=== PATIENT | female | born 1980 | race Caucasian/White ===

== ENCOUNTER 2016-09-05 16:46 | Emergency (ER) | payer SELFPAY ==
[~2016-09-05] VITALS: Ht 165.1 cm; Wt 54.4 kg
[~2016-09-05 16:46] MED LIST: ALPR1TAB7 PO; AMOX500C2 PO; CYCL10TA9 PO; MUPI1OIN6 TP; SULF1TAB35 PO; TRAM-42 PO; TRAM50TA2 PO; TRAZ100T92 PO
[2016-09-05] MEDS ORDERED: KETOROLAC 60 MG/2 ML VIAL IM ONE ×2 (16:47→17:00)
[2016-09-05] MEDS ORDERED: morphine INJ 10 MG/ML 1ML (SYR OR VIAL) ONE (16:47)
[2016-09-05] MEDS ORDERED: morphine INJ 10 MG/ML 1ML (SYR OR VIAL) IM ONE (17:00)
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
[2016-09-05] MEDS ORDERED: HYDR-757 PO (17:16)
[2016-09-05 17:38] VITALS: BP 109/72
[2016-09-05] MEDS ORDERED: BACITRACIN OINTMENT 28 GM TUBE TOP SCH (21:00)
== END 2016-09-05 17:40 | disposition home or self-care (01) ==
LOC: EDUNIT# 16:46 → ER 16:48
DX: T24.112A Burn of first degree of left thigh, initial encounter (principal); T22.112A Burn of first degree of left forearm, initial encounter; T23.111A Burn of first degree of right thumb (nail), initial encounter; T28.2XXA Burn of other parts of alimentary tract, initial encounter; T24.111A Burn of first degree of right thigh, initial encounter; T31.0 Burns involving less than 10% of body surface; W39.XXXA Discharge of firework, initial encounter
CPT/HCPCS: 96372; 99284

== ENCOUNTER 2017-10-05 06:39 | Emergency (ER) | payer SELFPAY ==
[~2017-10-05] VITALS: Ht 167.6 cm; Wt 52.2 kg
[~2017-10-05 06:39] MED LIST changes: +HYDR-757 PO; +TRAZ-190 PO; -TRAZ100T92 PO
[2017-10-05] MEDS ORDERED: ACETAMINOPHEN 500 MG TAB (TYLENOL) PO ONE (07:00)
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
--- NOTE | 2017-10-05 07:58 | Diagnostic Imaging Report ---
PROCEDURE: CT head and neck without contrast. TECHNIQUE: Contiguous axial images were obtained from the skull base through the vertex. Noncontrast axial images were then obtained of the soft tissue of the neck. INDICATION: Head injury. Visual disturbances. COMPARISON: CT head and neck without contrast 08/09/2015. FINDINGS: CT head: No intracranial hemorrhage, mass effect, hydrocephalus or extra-axial fluid collections. No CT evidence of territorial infarction. No fractures. The visualized paranasal sinuses and mastoids are clear. CT cervical spine: Normal alignment. Vertebral body heights are preserved. No fractures. No evidence of high-grade spinal canal or neural foraminal narrowing. The visualized paravertebral soft tissues are unremarkable. IMPRESSION: No acute intracranial or cervical spine CT findings. Dictated by: Dictated on workstation # [id number]
[2017-10-05 08:25] VITALS: BP 94/54
== END 2017-10-05 08:26 | disposition home or self-care (01) ==
LOC: EDUNIT# 06:39 → ER 06:42
DX: S09.90XA Unspecified injury of head, initial encounter (principal); M32.9 Systemic lupus erythematosus, unspecified; R40.2142 Coma scale, eyes open, spontaneous, at arrival to emergency department; R40.2252 Coma scale, best verbal response, oriented, at arrival to emergency department; R40.2362 Coma scale, best motor response, obeys commands, at arrival to emergency department; Z91.040 Latex allergy status; Z88.6 Allergy status to analgesic agent; Z77.22 Contact with and (suspected) exposure to environmental tobacco smoke (acute) (chronic); Z98.51 Tubal ligation status; Z87.59 Personal history of other complications of pregnancy, childbirth and the puerperium; V48.5XXA Car driver injured in noncollision transport accident in traffic accident, initial encounter
CPT/HCPCS: 70450; 70490

== ENCOUNTER 2018-08-26 06:11 | Emergency (ER) | payer SELFPAY ==
[~2018-08-26] VITALS: Ht 170.2 cm; Wt 63.5 kg
[~2018-08-26 06:11] MED LIST changes: +HYDR-4226 PO; -HYDR-757 PO
[2018-08-26] MEDS ORDERED: KETOROLAC 60 MG/2 ML VIAL IM STA (06:37)
[2018-08-26] MEDS ORDERED: METH4TAB PO ×2 (06:42→06:43)
[2018-08-26] MEDS ORDERED: LORA1TAB59 PO ×2 (06:42→06:43)
[2018-08-26] MEDS ORDERED: NF-CIPDEC OT ×2 (06:42→06:43)
[2018-08-26] MEDS ORDERED: AMOX-358 PO ×2 (06:42→06:43)
[2018-08-26] MEDS ORDERED: FLUT9.9S NS ×2 (06:42→06:43)
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
[2018-08-26] MEDS ORDERED: cefTRIAXone 1,000 MG/2.86 ml vial (IM ONLY) IM ONE (06:45)
[2018-08-26] MEDS ORDERED: LIDOCAINE 1% INJ 20 ML 20 ML VIAL INJ ONE (06:45)
--- NOTE | 2018-08-26 06:48 | NUR ---
Report given to Marisabel MERCADO
[2018-08-26 07:31] VITALS: BP 102/62
== END 2018-08-26 07:31 | disposition home or self-care (01) ==
LOC: EDUNIT# 06:11 → ER 06:14
DX: H60.93 Unspecified otitis externa, bilateral (principal); H65.93 Unspecified nonsuppurative otitis media, bilateral; J32.9 Chronic sinusitis, unspecified; Z91.040 Latex allergy status; Z88.0 Allergy status to penicillin; Z88.6 Allergy status to analgesic agent; Z98.51 Tubal ligation status
CPT/HCPCS: 96372; 99284

== ENCOUNTER 2019-04-18 12:43 | Emergency (ER) | payer SELFPAY ==
[~2019-04-18] VITALS: Ht 164 cm; Wt 63.0 kg
[~2019-04-18 12:43] MED LIST changes: +AMOX-358 PO; +FLUT9.9S NS; +LORA1TAB59 PO; +METH4TAB PO; +NF-CIPDEC OT; -TRAM50TA2 PO; -TRAZ-190 PO; +TRAZ-227 PO; +TRM50T PO
--- NOTE | 2019-04-18 12:59 | ED Cough/URI ---
General Chief Complaint: Respiratory Problems Stated Complaint: SOA Source: patient Exam Limitations: no limitations History of Present Illness Date Seen by Provider: Apr 18, 2019 Time Seen by Provider: 12:56 Initial Comments 38-year-old female presents with cough and burning of her lungs. Patient reports that she "accidentally inhaled lemon sanitation truck cleaner" for about 3 hours this morning. That there is some lemon sanitation truck cleaner spray in her house and she was not aware of it. Patient does smoke and has a history of COPD or reactive airway disease and uses an inhaler. She reports that it didn't help this morning when she tried it. Patient also states she felt a little nauseated patient and has some chills. Patient will does not have any chest pain, diaphoresis or other systemic complaints Allergies and Home Medications Allergies Coded Allergies: latex (Verified Allergy, Unknown, 08/26/18) Uncoded Allergies: ASA (Allergy, Unknown, 07/28/15) PCN (Allergy, Unknown, 08/26/18) Home Medications Alprazolam 1 Mg Tablet, 1 TAB PO TID, (Reported) Amoxicillin/Potassium Clav 1 Each Tablet, 1 EACH PO BID Prescribed by: VICK BARBER on 08/26/18642 Ciprofloxacin HCl/Dexameth 7.5 Ml Soln, 5 DROPS OT BID Prescribed by: VICK BARBER on 08/26/18642 Cyclobenzaprine HCl 10 Mg Tablet, 10 MG PO Q8H Prescribed by: VICK BARBER on 08/10/1553 Fluticasone Propionate 9.9 Ml [place].susp, 2 SPRAYS NS BID Prescribed by: VICK BARBER on 08/26/18642 Hydrocodone/Acetaminophen 1 Each Tablet, 1 EACH PO Q4H PRN for PAIN-MODERATE TO SEVERE Prescribed by: LOLY PEREZ on 09/05/16 1716 Loratadine/Pseudoephedrine 1 Each Tab.er.12h, 1 EACH PO BID Prescribed by: VICK BARBER on 08/26/18642 Methylprednisolone 4 Mg Tab.ds.pk, 4 MG PO UD Prescribed by: VICK BARBER on 08/26/18642 Mupirocin 1 Gm Oin.pf.eileen, 1 GM TP BID Prescribed by: VICK BARBER on 08/10/1553 Sulfamethoxazole/Trimethoprim 1 Each Tablet, 1 EACH PO BID Prescribed by: VICK BARBER on 08/10/1553 Tramadol HCl 50 Mg Tablet, 50 MG PO Q4H Prescribed by: VICK BARBER on 08/10/1553 Patient Home Medication List Home Medication List Reviewed: Yes Review of Systems Review of Systems Constitutional: chills, fever Respiratory: see HPI, cough Cardiovascular: No chest pain, No palpitations Gastrointestinal: No abdominal pain, No diarrhea, No nausea Genitourinary: no symptoms reported Musculoskeletal: no symptoms reported Skin: no symptoms reported Past Tbugbnu-Tggbqe-Xzohld Hx Past Med/Social Hx: Reviewed Nursing Past Med/Soc Hx Patient Social History 2nd Hand Smoke Exposure: Yes Recent Hopitalizations: No Immunizations Up To Date Tetanus Booster (TDap): Unknown Seasonal Allergies Seasonal Allergies: No Past Medical History Surgeries: Yes Section, Tubal Ligation Respiratory: No Cardiac: No Neurological: No Reproductive Disorders: No 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 oz. 63.767126hy; BMI Method:Estimated General Appearance: WD/WN, no apparent distress HEENT: PERRL/EOMI, normal ENT inspection Neck: supple Respiratory: chest non-tender, lungs clear Cardiovascular: normal peripheral pulses, regular rate, rhythm Gastrointestinal: non tender, soft Extremities: normal range of motion, non-tender Neurologic/Psychiatric: alert, normal mood/affect, oriented x 3 Skin: normal color, warm/dry Progress/Results/Core Measures Suspected Sepsis SIRS Temperature: Pulse: Respiratory Rate: Blood Pressure / Mean: Results/Orders Micro Results Microbiology 04/18/19 Influenza Types A,B Antigen (BERYL) - Final, Complete My Orders Orders - BRIANA MEJIA DO Influenza A And B Antigens (04/18/19 12:54) Chest Pa/Lat (2 View) (04/18/19 12:54) Albuterol/Ipra Inhalation Soln (Duoneb I (04/18/19 13:00) Svn Small Volume Nebulizer (04/18/19 12:54) Medications Given in ED Current Medications Medications Dose Ordered Sig/Alberto Route Start Time Stop Time Status Last Admin Dose Admin Albuterol/ Ipratropium 3 ml ONCE ONCE INH 04/18/19 13:00 04/18/19 13:01 DC 04/18/19 13:28 3 ML Vital Signs/I&O 04/18/19 12:50 Temp 37.0 Pulse 105 Resp 20 B/P (MAP) 114/70 (85) Pulse Ox 98 O2 Delivery Room Air Capillary Refill : Progress Note : Time: 13:44 Progress Note Patient with no acute findings on physical exam x-ray lab. Discussed with her that she likely has a mild pneumonitis from her the inhalation. This showed he has some underlying reactive airway disease needing an albuterol inhaler and continues to smoke. Discussed with her the need to quit smoking. That she likely will have better over the course of time. Diagnostic Imaging Diagonstic Imaging: Xray Plain Films/CT/US/NM/MRI: chest Comments NAME: CHARITO PIERRE [facility] REC#: [id number] PT STATUS: REG ER : 1980 PHYSICIAN: BRIANA MEJIA DO ADMIT DATE: 04/18/19/ER Draft Date of Exam:04/18/19 CHEST PA/LAT (2 VIEW) INDICATION: Shortness of breath. COMPARISON: 08/09/2015 TECHNIQUE: Two radiographs of the chest dated 04/18/2019. FINDINGS: The cardiac silhouette is within normal limits in size. No significant pulmonary vascular congestion. The lungs are clear of focal pulmonary opacity. No pleural effusion. No pneumothorax. Surgical clips are present in the right upper quadrant of the abdomen. No acute osseous abnormality. IMPRESSION: No acute cardiopulmonary abnormality. Departure Impression Primary Impression: Pneumonitis due to fumes and vapors Disposition: HOME, SELF-CARE Condition: Stable Departure-Patient Inst. Referrals: [facility] (PCP/Family) Primary Care Physician Patient Instructions: Pneumonitis (DC) Add. Discharge Instructions: Emergency department focuses on treating and ruling out life-threatening diseases. Whenever possible, a diagnosis is given. However, most patients are given an impression based on their history, physical exam, and workup during your brief time in the ER. Information about probable diagnosis and other educational material has been provided. Please take the time to read and understand this information. It is very important that you follow up with a physician as discussed during the visit today. Failure to adhere to your follow-up instructions may lead to severe disability, injury, or so please make sure to keep your appointments or obtain one as requested. Please keep in mind the emergency department is not designed to your primary care or "family doctor" and nonurgent issues are best evaluated by an outpatient physician All discharge instructions reviewed with patient and/or family. Voiced understanding. BRIANA MEJIA DO Apr 18, 2019 12:59
[2019-04-18] MEDS ORDERED: RT-ALBUTEROL/IPRATROPIUM 3 ML (DUONEB) VIAL INH ONE (13:00)
--- NOTE | 2019-04-18 13:28 | Diagnostic Imaging Report ---
INDICATION: Shortness of breath. COMPARISON: 08/09/2015 TECHNIQUE: Two radiographs of the chest dated 04/18/2019. FINDINGS: The cardiac silhouette is within normal limits in size. No significant pulmonary vascular congestion. The lungs are clear of focal pulmonary opacity. No pleural effusion. No pneumothorax. Surgical clips are present in the right upper quadrant of the abdomen. No acute osseous abnormality. IMPRESSION: No acute cardiopulmonary abnormality. Dictated by: Dictated on workstation # [id number]
[2019-04-18 13:50] VITALS: BP 114/70
== END 2019-04-18 13:50 | disposition home or self-care (01) ==
LOC: EDUNIT# 12:43 → ER 12:44
DX: J68.0 Bronchitis and pneumonitis due to chemicals, gases, fumes and vapors (principal); J44.9 Chronic obstructive pulmonary disease, unspecified; Z91.040 Latex allergy status; Z88.6 Allergy status to analgesic agent; Z88.0 Allergy status to penicillin; Z79.51 Long term (current) use of inhaled steroids; Z77.22 Contact with and (suspected) exposure to environmental tobacco smoke (acute) (chronic)
CPT/HCPCS: 71046; 87804

== ENCOUNTER 2019-08-20 15:04 | Emergency (ER) | payer SELFPAY ==
[~2019-08-20] VITALS: Ht 160 cm; Wt 59.0 kg
--- NOTE | 2019-08-20 15:37 | ED EENT ---
History of Present Illness General Chief Complaint: Ear Problems Stated Complaint: BILAT EAR PAIN Source: patient Exam Limitations: no limitations History of Present Illness Date Seen by Provider: Aug 20, 2019 Time Seen by Provider: 15:36 Initial Comments 39-year-old female presents with bilateral ear pain. She reports that started after swimming. Feels like her equilibrium is off. She does have some pain that goes little bit down and her neck. She denies any nausea or vomiting. She denies any fevers chills, she does not have any ear drainage. Allergies and Home Medications Allergies Coded Allergies: latex (Verified Allergy, Unknown, 08/26/18) Uncoded Allergies: ASA (Allergy, Unknown, 07/28/15) PCN (Allergy, Unknown, 08/26/18) Home Medications Alprazolam 1 Mg Tablet, 1 TAB PO TID, (Reported) Amoxicillin/Potassium Clav 1 Each Tablet, 1 EACH PO BID Prescribed by: VICK BARBER on 08/26/18642 Ciprofloxacin HCl/Dexameth 7.5 Ml Soln, 5 DROPS OT BID Prescribed by: VICK BARBER on 08/26/18642 Cyclobenzaprine HCl 10 Mg Tablet, 10 MG PO Q8H Prescribed by: VICK BARBER on 08/10/1553 Fluticasone Propionate 9.9 Ml [place].susp, 2 SPRAYS NS BID Prescribed by: VICK BARBER on 08/26/18642 Hydrocodone/Acetaminophen 1 Each Tablet, 1 EACH PO Q4H PRN for PAIN-MODERATE TO SEVERE Prescribed by: LOLY PEREZ on 09/05/16 171 Loratadine/Pseudoephedrine 1 Each Tab.er.12h, 1 EACH PO BID Prescribed by: VICK BARBER on 08/26/18642 Methylprednisolone 4 Mg Tab.ds.pk, 4 MG PO UD Prescribed by: VICK BARBER on 08/26/18642 Mupirocin 1 Gm Oin.pf.eileen, 1 GM TP BID Prescribed by: VICK BARBER on 08/10/1553 Polymyxin B Sulf/Trimethoprim 10 Ml Drops, 10 ML OP/OT 5XD Prescribed by: BRIANA MEJIA on 08/20/19 1547 Sulfamethoxazole/Trimethoprim 1 Each Tablet, 1 EACH PO BID Prescribed by: VICK BARBER on 08/10/1553 Tramadol HCl 50 Mg Tablet, 50 MG PO Q4H Prescribed by: VICK BARBER on 08/10/1553 Patient Home Medication List Home Medication List Reviewed: Yes Review of Systems Review of Systems Constitutional: No chills, No fever Eyes: No Symptoms Reported Ears: See HPI Nose: no symptoms reported Mouth: no symptoms reported Throat: no symptoms reported Respiratory: No cough Cardiovascular: No chest pain, No palpitations Gastrointestinal: no symptoms reported Musculoskeletal: no symptoms reported Skin: no symptoms reported Past Dekdlwd-Metbmw-Nbnuyu Hx Past Med/Social Hx: Reviewed Nursing Past Med/Soc Hx Patient Social History 2nd Hand Smoke Exposure: Yes Recent Foreign Travel: No Contact w/Someone Who Travel: No Recent Hopitalizations: No Immunizations Up To Date Tetanus Booster (TDap): Unknown Seasonal Allergies Seasonal Allergies: No Past Medical History Surgeries: Yes Section, Tubal Ligation Respiratory: Yes Asthma Cardiac: No Neurological: No Reproductive Disorders: No 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 oz. 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 She does have symptoms are also consistent with bilateral eustachian tube dysfunction and seasonal allergies. I recommended she start Flonase twice daily,, Zyrtec, Yoselin or other antihistamine as directed on package. She should've proper ears 10 times a day. I will also prescribe her polymyxin B otic. Patient is discharged home in stable condition Departure Impression Primary Impression: Otitis externa Qualified Codes: H60.333 - Swimmer's ear, bilateral Additional Impression: Eustachian tube dysfunction Qualified Codes: H69.83 - Other specified disorders of eustachian tube, bilateral Disposition: 01 HOME, SELF-CARE Condition: Stable Departure-Patient Inst. Referrals: NO,LOCAL PHYSICIAN (PCP/Family) Primary Care Physician Patient Instructions: Eustachian Tube Problems, Eustachian Tube Problems (DC), Outer Ear Infection (DC) Add. Discharge Instructions: Flonase twice daily each nostril Yoselin, Zyrtec or similar allergy medication daily Please pop. ears 10 times daily All discharge instructions reviewed with patient and/or family. Voiced understanding. Scripts Polymyxin B Sulf/Trimethoprim (Polymyxin B-Tmp Eye Drops) 10 Ml Drops 10 ML OP/OT 5XD, #1 EA Prov: BRIANA MEJIA DO 08/20/19 BRIANA MEJIA DO Aug 20, 2019 15:37
[2019-08-20] MEDS ORDERED: PLTR10OP OP/OT (15:47)
[2019-08-20 15:58] VITALS: BP 100/74
== END 2019-08-20 15:58 | disposition home or self-care (01) ==
LOC: EDUNIT# 15:04 → ER 15:05
DX: H60.333 Swimmer's ear, bilateral (principal); H69.83 Other specified disorders of Eustachian tube, bilateral; J45.909 Unspecified asthma, uncomplicated; M32.9 Systemic lupus erythematosus, unspecified; Z79.899 Other long term (current) drug therapy; Z88.0 Allergy status to penicillin; Z88.8 Allergy status to other drugs, medicaments and biological substances; Z91.040 Latex allergy status
CPT/HCPCS: 99282